=== PATIENT | female | born 2000 | race American Indian/Alaskan Native ===

== ENCOUNTER 2021-01-06 17:12 | Emergency (ER) | payer MEDICAID ==
[2021-01-06 18:14] LABS: Bacteria,Urine 1+ /HPF (Negative); Bilirubin,Urine SM (Negative); Blood,Urine MOD (Negative); Color,Urine Amber (Yellow); Mucus,Urine 3+ /HPF
[2021-01-06 18:18] LABS: WBC,Urine > 182.0 /HPF (0.0-6.0)
[2021-01-06 18:19] LABS: HCG Qualitative,Urine Negative (Negative); Ictotest,Urine Negative (Negative)
[2021-01-06 18:38] LABS: Basophils % (Auto) 0.2 % (0.0-1.8); Hematocrit 39.8 % (30.3-42.9); Hemoglobin 13.9 gm/dl (10.1-14.3); Lymphocytes # (Auto) 1.8 K/mm3 (1.2-5.4); Mean Corpuscular HGB Conc 35 % (30-34); Mean Corpuscular Volume 103 fl (79-97); Monocytes # (Auto) 0.9 K/mm3 (0.0-0.8); Monocytes % (Auto) 4.9 % (0.0-7.3); Platelet Count 195 K/mm3 (140-440); Red Blood Count 3.88 M/mm3 (3.65-5.03); Red Cell Distribution Width 11.8 % (13.2-15.2)
[2021-01-06 18:49] LABS: Alanine Aminotransferase 38 units/L (7-56); Albumin 5.1 g/dL (3.9-5); Blood Urea Nitrogen 9 mg/dL (7-17); Calcium 9.1 mg/dL (8.4-10.2); Hemolysis Index 22
[2021-01-06 18:51] LABS: BUN/Creatinine Ratio 15
[2021-01-06] MEDS ORDERED: ONDANSETRON 4 MG/2 ML INJ IV ONE (19:14)
[2021-01-06] MEDS ORDERED: SODIUM CHLORIDE 0.9% 1000 ML 1,000 ML IV ONE (19:14)
[2021-01-06] MEDS ORDERED: MORPHINE 4 MG/1 ML INJ IV ONE (19:14)
--- NOTE | 2021-01-06 21:20 | Cat Scan Report ---
CT ABDOMEN AND PELVIS WITH IV CONTRAST INDICATION: lower abd pain, leukocytosis. COMPARISON: None available. TECHNIQUE: All CT scans at this facility use dose modulation, automated exposure control, iterative reconstructi on or weight based dosing, when appropriate, to reduce radiation dose to as low as reasonably achieva ble. FINDINGS: Lung Bases: No significant abnormality. Skeletal System: No acute abnormality. ABDOMEN: Liver: No significant abnormality. Gallbladder: No significant abnormality. Bile Ducts: No significant abnormality. Pancreas: No significant abnormality. Spleen: No significant abnormality. Adrenals: No significant abnormality. Right Kidney: No significant abnormality. Left Kidney: No significant abnormality. Upper GI tract: No significant abnormality. Lymph Nodes: No significant adenopathy. Aorta: No significant abnormality. Additional Findings: No significant abnormality. PELVIS: Colon: No acute abnormality. Diverticulosis is noted. Urinary Bladder and Distal Ureters: No significant abnormality. Appendix: No significant abnormality. Lymph Nodes: No significant adenopathy. Additional Findings: IUD is noted in expected position. There are small bilateral ovarian cysts. Pelv ic loops of small bowel are mildly distended with fluid. IMPRESSION: 1. There are a few pelvic loops of small bowel that are mildly distended with fluid, this could be s een in the setting of mild enteritis. No obstruction is seen. The appendix is normal. 2. Incidental findings, as above. Signer Name: Saravanan Jeter MD Signed: 01/06/2021 9:16 PM Workstation Name: [id number]
[2021-01-06] MEDS ORDERED: cefTRIAXone/NS 1 GM/50 ML 1 GM/50 ML BAG IV ONE (21:26)
--- NOTE | 2021-01-06 21:41 | Emergency Department Report ---
ED Abdominal Pain HPI - General Chief Complaint: Abdominal Pain Stated Complaint: ABD PAINS Time Seen by Provider: 01/06/21 19:01 Source: patient Mode of arrival: Ambulatory Limitations: No Limitations - History of Present Illness Initial Comments: Patient is a 20-year-old female presents emergency room complaints of lower abdominal pain that began yesterday morning. She has associated no appetite and urinary frequency and urgency. She states that she is currently on her menstrual cycle. She denies any nausea, vomiting, diarrhea, dysuria, abnormal vaginal discharge, pelvic pain, back pain. She states that she is sexually active with one partner and uses protection and denies concerns for STDs. No past medical history. Allergies medications. No past abdominal surgical history. Severity scale (0 -10): 7 - Related Data Previous Rx's Medication Instructions Recorded Last Taken Type Ibuprofen [Motrin 600 MG tab] 600 mg PO Q8H PRN #14 tablet 01/06/21 Unknown Rx Ondansetron [Zofran Odt] 4 mg PO Q8HR PRN #10 tab.rapdis 01/06/21 Unknown Rx cephALEXin [Keflex] 500 mg PO BID 7 Days #14 cap 01/06/21 Unknown Rx metroNIDAZOLE [Flagyl] 500 mg PO BID 7 Days #14 tab 01/06/21 Unknown Rx Allergies Allergy/AdvReac Type Severity Reaction Status Date / Time No Known Allergies Allergy Unverified 01/06/21 17:40 ED Review of Systems ROS: Stated complaint: ABD PAINS Other details as noted in HPI Comment: All other systems reviewed and negative ED Past Medical Hx - Past Medical History Previous Medical History?: No - Surgical History Past Surgical History?: No - Social History Smoking Status: Current Some Day Smoker Substance Use Type: Alcohol, Marijuana - Medications Home Medications: Home Medications Medication Instructions Recorded Confirmed Last Taken Type Ibuprofen [Motrin 600 MG tab] 600 mg PO Q8H PRN #14 tablet 01/06/21 Unknown Rx Ondansetron [Zofran Odt] 4 mg PO Q8HR PRN #10 tab.rapdis 01/06/21 Unknown Rx cephALEXin [Keflex] 500 mg PO BID 7 Days #14 cap 01/06/21 Unknown Rx metroNIDAZOLE [Flagyl] 500 mg PO BID 7 Days #14 tab 01/06/21 Unknown Rx ED Physical Exam - General Limitations: No Limitations General appearance: alert, in no apparent distress - Head Head exam: Present: atraumatic, normocephalic - Eye Eye exam: Present: normal appearance - ENT ENT exam: Present: mucous membranes moist - Respiratory Respiratory exam: Present: normal lung sounds bilaterally. Absent: respiratory distress, wheezes, rales, rhonchi, stridor, chest wall tenderness, accessory muscle use, decreased breath sounds, prolonged expiratory - Cardiovascular Cardiovascular Exam: Present: regular rate, normal rhythm, normal heart sounds. Absent: systolic murmur, diastolic murmur, rubs, gallop - GI/Abdominal GI/Abdominal exam: Present: soft, tenderness (generalized lower), normal bowel sounds. Absent: distended, guarding, rebound, rigid - External exam: Absent: erythema, swelling, lesions, lacerations, ecchymosis Speculum exam: Present: vaginal bleeding (small amount in vaginal vault), other (gang ripsaw operator: letha, RN). Absent: vaginal discharge, cervical discharge, foreign body, tissue, laceration Bi-manual exam: Present: normal bi-manual exam. Absent: cervical motion tendernes, adnexal tenderness, adnexal mass - Back Exam Back exam: Absent: CVA tenderness (R), CVA tenderness (L) - Neurological Exam Neurological exam: Present: alert, oriented X3 - Psychiatric Psychiatric exam: Present: normal affect, normal mood - Skin Skin exam: Present: warm, dry, intact ED Course Vital Signs 01/06/21 01/06/21 01/06/21 17:41 19:55 23:52 Temperature 99 F 98.6 F Pulse Rate 88 78 Respiratory 20 20 20 Rate Blood Pressure 125/78 Blood Pressure 124/69 [Left] O2 Sat by Pulse 99 99 Oximetry 01/06/21 23:53 Temperature Pulse Rate Respiratory 20 Rate Blood Pressure Blood Pressure [Left] O2 Sat by Pulse 99 Oximetry ED Medical Decision Making - Lab Data Result diagrams: 01/06/21 17:57 01/06/21 17:57 Lab Results 01/06/21 01/06/21 01/06/21 Range/Units 17:55 17:57 17:57 WBC 17.8 H (4.5-11.0) K/mm3 RBC 3.88 (3.65-5.03) M/mm3 Hgb 13.9 (10.1-14.3) gm/dl Hct 39.8 (30.3-42.9) % MCV 103 H (79-97) fl MCH 36 H (28-32) pg MCHC 35 H (30-34) % RDW 11.8 L (13.2-15.2) % Plt Count 195 (140-440) K/mm3 Lymph % (Auto) 10.0 L (13.4-35.0) % [place] % (Auto) 4.9 (0.0-7.3) % Eos % (Auto) 0.0 (0.0-4.3) % Baso % (Auto) 0.2 (0.0-1.8) % Lymph # (Auto) 1.8 (1.2-5.4) K/mm3 [place] # (Auto) 0.9 H (0.0-0.8) K/mm3 Eos # (Auto) 0.0 (0.0-0.4) K/mm3 Baso # (Auto) 0.0 (0.0-0.1) K/mm3 Seg Neutrophils % 84.9 H (40.0-70.0) % Seg Neutrophils # 15.1 H (1.8-7.7) K/mm3 Sodium 138 (137-145) mmol/L Potassium 3.7 (3.6-5.0) mmol/L Chloride 96.9 L (98-107) mmol/L Carbon Dioxide 27 (22-30) mmol/L Anion Gap 18 mmol/L BUN 9 (7-17) mg/dL Creatinine 0.6 (0.6-1.2) mg/dL Estimated GFR > 60 ml/min BUN/Creatinine Ratio 15 % Glucose 83 (65-100) mg/dL Calcium 9.1 (8.4-10.2) mg/dL Total Bilirubin 1.20 (0.1-1.2) mg/dL AST 136 H (5-40) units/L ALT 38 (7-56) units/L Alkaline Phosphatase 87 (35-129) units/L Total Protein 7.9 (6.3-8.2) g/dL Albumin 5.1 H (3.9-5) g/dL Albumin/Globulin Ratio 1.8 % Urine Color Kami (Yellow) Urine Turbidity Cloudy (Clear) Urine pH 6.0 (5.0-7.0) Ur Specific [place] 1.031 H (1.003-1.030) Urine Protein 100 mg/dl (Negative) mg/dL Urine Glucose (UA) Neg (Negative) mg/dL Urine Ketones 20 (Negative) mg/dL Urine Blood Mod (Negative) Urine Nitrite Neg (Negative) Urine Bilirubin Sm (Negative) Urine Ictotest Negative (Negative) Urine Urobilinogen 4.0 (<2.0) mg/dL Ur Leukocyte Esterase Mod (Negative) Urine WBC (Auto) > 182.0 H (0.0-6.0) /HPF Urine RBC (Auto) 79.0 (0.0-6.0) /HPF U Epithel Cells (Auto) 22.0 H (0-13.0) /HPF Urine Bacteria (Auto) 1+ (Negative) /HPF Urine Mucus 3+ /HPF Urine HCG, Qual Negative (Negative) - Radiology Data Radiology results: report reviewed Ordering Physician: JIMENEZ LARES Date of Service: 01/06/21 Procedure(s): CT abdomen pelvis w con Accession Number(s): [id number] cc: JIMENEZ LARES CT ABDOMEN AND PELVIS WITH IV CONTRAST INDICATION: lower abd pain, leukocytosis. COMPARISON: None available. TECHNIQUE: All CT scans at this facility use dose modulation, automated exposure control, iterative reconstruction or weight based dosing, when appropriate, to reduce radiation dose to as low as reasonably achievable. FINDINGS: Lung Bases: No significant abnormality. Skeletal System: No acute abnormality. ABDOMEN: Liver: No significant abnormality. Gallbladder: No significant abnormality. Bile Ducts: No significant abnormality. Pancreas: No significant abnormality. Spleen: No significant abnormality. Adrenals: No significant abnormality. Right Kidney: No significant abnormality. Left Kidney: No significant abnormality. Upper GI tract: No significant abnormality. Lymph Nodes: No significant adenopathy. Aorta: No significant abnormality. Additional Findings: No significant abnormality. PELVIS: Colon: No acute abnormality. Diverticulosis is noted. Urinary Bladder and Distal Ureters: No significant abnormality. Appendix: No significant abnormality. Lymph Nodes: No significant adenopathy. Additional Findings: IUD is noted in expected position. There are small bilateral ovarian cysts. Pelvic loops of small bowel are mildly distended with fluid. IMPRESSION: 1. There are a few pelvic loops of small bowel that are mildly distended with fluid, this could be seen in the setting of mild enteritis. No obstruction is seen. The appendix is normal. 2. Incidental findings, as above. Signer Name: Saravanan Jeter MD Signed: 01/06/2021 9:16 PM Workstation Name: [id number] Transcribed By: FABRICE Dictated By: Saravanan Jeter MD Electronically Authenticated By: Saravanan Jeter MD Signed Date/Time: 01/06/212115 DD/ 11 TD/TT: Print - Medical Decision Making Patient is a 20-year-old female presents emergency room complaints of lower abdominal pain that began yesterday morning. She has associated no appetite and urinary frequency and urgency. She states that she is currently on her menstrual cycle. She denies any nausea, vomiting, diarrhea, dysuria, abnormal vaginal discharge, pelvic pain, back pain. She states that she is sexually active with one partner and uses protection and denies concerns for STDs. No past medical history. Allergies medications. No past abdominal surgical history. Vitals are normal. On exam generalized lower shortness of vision, no guarding, no rebound, no rigidity, normal bowel sounds, no peritoneal signs. Chaperoned pelvic examination shows small amount of blood in the vaginal vault, no CMT, no adnexal tenderness or masses. Labs significant for leukocytosis. UA shows evidence of UTI. Wet prep shows evidence of bacterial vaginosis. G/C swab sent, patient states that she would like to await her results for chlamydia treatment. Patient was given ceftriaxone due to her UTI which will also cover for gonorrhea. CT abd pelvis: 1. There are a few pelvic loops of small bowel that are mildly distended with fluid, this could beseen in the setting of mild enteritis. No obstruction is seen. The appendix is normal. 2. Incidental findings, as above. Discussed all results with patient and answer questions. Patient given medications on the emergency department and symptoms improved and she was feeling much better and ready to go home. Patient was able to tolerate p.o. intake. Patient given prescriptions for medications. Advised patient Please take medication as prescribed. Please take probiotics and eat yogurt to prevent yeast infection from antibiotics. Increase your water intake. 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 Please have any partners tested and treated as well. Please follow-up with the clinic or the health apartment order to receive a full STD panel. Return to emergency room for any new or worsening symptoms. Critical care attestation.: If time is entered above; I have spent that time in minutes in the direct care of this critically ill patient, excluding procedure time. ED Disposition Clinical Impression: Enteritis, Bacterial vaginosis Abdominal pain Qualifiers: Abdominal location: lower abdomen, unspecified Qualified Code(s): R10.30 - Lower abdominal pain, unspecified Leukocytosis Qualifiers: Leukocytosis type: unspecified Qualified Code(s): D72.829 - Elevated white blood cell count, unspecified UTI (urinary tract infection) Qualifiers: Urinary tract infection type: acute cystitis Hematuria presence: with hematuria Qualified Code(s): N30.01 - Acute cystitis with hematuria Disposition: TO HOME OR SELFCARE Is pt being admited?: No Does the pt Need Aspirin: No Condition: Stable Instructions: Urinary Tract Infection, Adult, [id number], Bacterial Vaginosis, [id number], Bacterial Vaginosis (ED), Abdominal Pain (ED) Additional Instructions: Please take medication as prescribed. Please take probiotics and eat yogurt to prevent yeast infection from antibiotics. Increase your water intake. 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 Please have any partners tested and treated as well. Please follow-up with the clinic or the health [facility] order to receive a full STD panel. Return to emergency room for any new or worsening symptoms. Prescriptions: metroNIDAZOLE [Flagyl] 500 mg PO BID 7 Days #14 tab cephALEXin [Keflex] 500 mg PO BID 7 Days #14 cap Ibuprofen [Motrin 600 MG tab] 600 mg PO Q8H PRN #14 tablet PRN Reason: Pain Ondansetron [Zofran Odt] 4 mg PO Q8HR PRN #10 tab.rapdis PRN Reason: nausea/vomiting Referrals: PRIMARY CARE, [Primary Care Provider] - 2-3 Days Forms: STI Treatment and Prevention Time of Disposition: 21:39 Print Language: GREENLAND[place]
[2021-01-06 23:53] VITALS: BP 124/69
== END 2021-01-06 23:56 | disposition home or self-care (01) ==
LOC: ED 17:12
DX: K52.9 Noninfective gastroenteritis and colitis, unspecified (principal); N76.0 Acute vaginitis; B96.89 Other specified bacterial agents as the cause of diseases classified elsewhere; F17.200 Nicotine dependence, unspecified, uncomplicated; F12.90 Cannabis use, unspecified, uncomplicated; Z72.89 Other problems related to lifestyle; Z79.899 Other long term (current) drug therapy
CPT/HCPCS: 36415; 74177; 80053; 81001; 81025; 85025; 87210; 87591; 96361; 96365; 96366; 96375; 99284; J0696; J2270; J2405; J7030; Q9967